=== PATIENT | female | born 1980 | race Two or more races ===

== ENCOUNTER 2024-06-07 12:58 | Emergency (ER) | payer BC, SELFPAY ==
[2024-06-07 13:32] VITALS: BP 163/94; PULSE 88; RESP 18; TEMP 36.9; O2SAT 96; BMI 32.8
--- NOTE | 2024-06-07 13:56 | PD.EDADULT ---
ED General RME/HPI General Chief complaint: Dental/Oral/Throat Stated complaint: FOOD STUCK IN MY THROAT STRINGY PINEAPPLE Time Seen by Provider: 06/07/24 13:42 Source: patient Arrival date/time: 06/07/24 12:58 44-year-old female with no known medical history presents to the emergency room with a chief complaint of a piece of pineapple stuck in her throat. Patient states she was eating pineapple last night and believes the string piece of the pineapple stuck in her throat and she is unable to clear it. Patient denies any shortness of breath or respiratory distress. Mode of arrival: ambulatory Limitations: no limitations Related Data Home Medications ?Medication ?Instructions ?Recorded ?Confirmed No Known Home Medications 06/17/22 06/18/22 Allergies Allergy/AdvReac Type Severity Reaction Status Date / Time No Known Allergies Allergy Verified 06/07/24 13:01 Review of Systems Review of Systems Systems Reviewed: All systems reviewed, normal except as documented Constitutional Constitutional: Reports system reviewed and no additional complaints, except as documented, Denies fatigue, Denies fever(s), Denies headache(s) and Denies weakness Eyes Eyes: Reports system reviewed and no additional complaints, except as documented, Denies blurry vision and Denies change in vision ENT Ears, Nose, Mouth, and Throat: Reports system reviewed and no additional complaints, except as documented, Denies otalgia, Denies headache(s), Denies nasal congestion, Denies throat swelling and Denies vertigo Cardiovascular Cardiovascular: Reports system reviewed and no additional complaints, except as documented, Denies chest pain, Denies dyspnea and Denies dyspnea on exertion Respiratory Respiratory: Reports system reviewed and no additional complaints, except as documented, Denies chest congestion, Denies cough, Denies dyspnea, Denies dyspnea on exertion and Denies wheezing Gastrointestinal Gastrointestinal: Reports system reviewed and no additional complaints, except as documented, Denies abdominal pain, Denies cramping, Denies nausea and Denies vomiting Genitourinary Genitourinary: Reports system reviewed and no additional complaints, except as documented Musculoskeletal Musculoskeletal: Reports system reviewed and no additional complaints, except as documented and Denies back pain Integumentary/Breasts Skin/Breast: Reports system reviewed and no additional complaints, except as documented and Denies wounds Neurologic Neurologic: Reports system reviewed and no additional complaints, except as documented, Denies confusion, Denies headache(s), Denies lack of coordination, Denies vertigo and Denies weakness Psychiatric Psychiatric: Reports system reviewed and no additional complaints, except as documented, Denies anxiety, Denies confusion, Denies depression, Denies paranoia, Denies suicidal ideation and Denies tactile hallucinations Endocrine Endocrine: Reports system reviewed and no additional complaints, except as documented and Denies fatigue Hematologic/Lymphatic Hematologic/Lymphatic: Reports system reviewed and no additional complaints, except as documented and Denies lymphadenopathy Allergic/Immunologic Allergic/Immunologic: Reports system reviewed and no additional complaints, except as documented, Denies throat swelling, Denies urticaria and Denies wheezing ED Exam General Limitations: Present no limitations General appearance: Present alert and in no apparent distress Head Head exam: Present atraumatic Eye Eye exam: Present normal appearance, PERRL and EOMI ENT ENT exam: Present normal exam, normal oropharynx and mucous membranes moist Neck Neck exam: Present normal inspection, full ROM and trachea midline Chest Chest inspection: Present normal inspection and symmetric chest wall rise Respiratory Respiratory exam: Present normal lung sounds bilaterally; Absent respiratory distress, wheezes, stridor, accessory muscle use or prolonged expiratory phase Cardiovascular Cardiovascular exam: Present regular rate, normal rhythm and normal heart sounds Abdominal Exam Abdominal exam: Present soft and normal bowel sounds Extremities Exam Extremities exam: Present normal inspection and full ROM Back Exam Back exam: Present normal inspection and full ROM Neurological Exam Neurological exam: Present alert, oriented X3 and CN II-XII intact Psychiatric Psychiatric exam: Present normal affect and normal mood Skin Skin exam: Present warm, dry, intact and normal color Course Quality Measures none Vital Signs Vital signs: Vital Signs Temperature 98.4 F 06/07/24 13:32 Pulse Rate 88 06/07/24 13:32 Respiratory Rate 18 06/07/24 13:32 Blood Pressure 163/94 H 06/07/24 13:32 Pulse Oximetry (%) 96 06/07/24 13:32 Oxygen Delivery Method Room Air 06/07/24 13:32 O2 saturation 96% within normal limits MDM Patient data External records reviewed:: [facility] previous records Clinical information provided by:: patient Social determinants that could affect healthcare access:: none Patient has the following chronic illnesses:: No chronic illness How is presenting disease/condition affected by chronic disease/condition?: no chronic disease Evaluation data The following diagnostics were reviewed and interpreted by me:: lab results and radiology exam(s) Lab and/or radiology exams considered but not ordered:: Labs and radiology exams considered and ordered Interpretation Summary: N/A Medications Medications considered but not ordered:: No medication given Medication administrations:: No medication given Consultations Consultation(s) initiated? (list below): No Diagnosis Differential Diagnosis ED Complaint MDM: Feeling of foreign body in throat Most likely diagnosis given after review of the tests above:: Feeling of foreign body in throat Admission Indicated Admission indicated?: not indicated Explain why admission is indicated or not indicated:: N/A Admission Request Was there a request for admission?: No Disposition Plan Disposition Plan: Discharge Discharge Attestation Discharge Attestation: The patient and all family members were given an opportunity to ask questions and understood the discharge instructions. Discharge instructions specifically effects, indications for sooner follow up or return to the emergency department, and the expected course of current diagnosis. Patient condition: Stable Medical Decision Making MDM Narrative MDM Narrative: 44-year-old female with no known medical history presents to the emergency room with a chief complaint of a piece of pineapple stuck in her throat. Patient states she was eating pineapple last night and believes the string piece of the pineapple stuck in her throat and she is unable to clear it. Patient denies any shortness of breath or respiratory distress. Patient is hemodynamically stable and in no apparent distress. The patient is not tachypneic tachycardic and O2 saturation is 96% on room air Physical examination shows clear bilateral lung sounds there is no wheezing there is no stridor there is no signs of any respiratory distress or respiratory obstruction. There is no tongue swelling or lip swelling. ENT examination shows a clear posterior pharynx I am unable to visualize the piece of pineapple in her pharynx or in anywhere in the mouth. I consulted Dr. Valdovinos my attending physician and based on his recommendations the patient can be discharged and she will need to follow-up with ENT to have this removed if it continues to bother her Patient was discharged and told to return to the emergency room for any evidence of worsening signs or symptoms Differential Diagnosis Differential Diagnosis: Feeling of foreign body in throat Discharge Plan Plan Patient Disposition: HOME (Self Care) Prescriptions/Referrals Prescriptions/Med Rec: No Action No Known Home Medications Problem List Clinical Impression: Feeling of foreign body in throat Patient/Caregiver Discharge Instructions Additional Instructions: Please follow-up with your primary care provider in the next 24 to 48 hours At this time we are not able to visualize any piece of pineapple in your throat. If your symptoms continue you will need a referral to an ENT specialist to remove this For any evidence of worsening signs or symptoms including shortness of breath, difficulty breathing, difficulty swallowing please return to the emergency room immediately Print Language: Kyrgyz Stand Alone Forms: Madelyn Award Info., Patient Portal Info Letter PA/APARNA Supervising Physician HAYDEE/APARNA Supervising Physician: Dr. Valdovinos
== END 2024-06-07 14:02 | disposition home or self-care (01) ==
PROVIDERS: Emergency Provider Emergency Medicine; PCP Internal Medicine
DX: T17.228A Food in pharynx causing other injury, initial encounter (principal)
CPT/HCPCS: 99281

== ENCOUNTER → 2024-06-21 | Outpatient (CLI) | payer BC, SELFPAY ==
--- NOTE | 2024-06-21 11:30 | XR_ITS ---
Examination: Thyroid sonography complete Technique: Grayscale sonographic images thyroid lobes. Exam date and time: June 24, 2024, 11:21 AM Indications: Difficulty swallowing beginning 6 months ago Findings: Right thyroid 4.1 cm Upper pole nodule 4 x 3 mm Left thyroid 4.4 cm Midpole nodule 2 x 4 mm Lower pole nodules 3 x 4 mm, 3 x 5 mm Impression: Small thyroid nodules as above
== END | disposition home or self-care (01) ==
PROVIDERS: PCP Internal Medicine; Referring Provider Internal Medicine; Visit Provider Internal Medicine
DX: E04.2 Nontoxic multinodular goiter (principal)
CPT/HCPCS: 76536

== ENCOUNTER → 2024-06-22 | Outpatient (CLI) | payer BC, SELFPAY ==
[2024-06-22 11:19] LABS: Basophils # (Auto) 0.1 Thou/mm3 (0.0-0.2); Basophils % (Auto) 1 % (0-2.5); Eosinophils # (Auto) 0.2 Thou/mm3 (0.0-0.5); Eosinophils % (Auto) 2 % (0-10); Hematocrit 36.4 % (36.0-46.0); Hemoglobin 11.3 g/dL (12.0-16.0); Immature Granulocytes % (Auto) 0 % (0-0); Immature Granulocytes Auto 0.03 Thou/mm3 (0.00-0.00); Lymphocytes # (Auto) 1.9 Thou/mm3 (1.0-4.8); Lymphocytes % (Auto) 20 % (10-50); Mean Corpuscular Hemoglobin 24.5 pg (25.0-35.0); Mean Corpuscular Volume 79 fL (80-100); Monocytes # (Auto) 0.5 Thou/mm3 (0.0-0.8); Monocytes % (Auto) 5 % (0-12); Neutrophils # (Auto) 6.8 Thou/mm3 (1.8-7.7); Neutrophils % (Auto) 72 % (37-80); Nucleated Red Blood Cell % 0 /100 WBC (0); Platelet Count 382 Thou/mm3 (140-440); RDW Standard Deviation 52.2 fL (36.4-46.3); Red Blood Count 4.62 Miln/mm3 (4.00-5.20); White Blood Count 9.5 Thou/mm3 (3.6-11.0)
[2024-06-22 11:41] LABS: Vitamin D 25 Hydroxy Total 52.7 ng/mL (7.3-40.2)
[2024-06-22 11:45] LABS: Alanine Aminotransferase 26 U/L (10-49); Albumin, Serum 4.2 gm/dL (3.5-5.0); Albumin/Globulin Ratio 1.7 (1.2-2.2); Alkaline Phosphatase 115 U/L (46-116); Anion Gap 8 (7-16); Aspartate Amino Transferase 11 U/L (0-34); BUN/Creatinine Ratio 14 Ratio (12-20); Bilirubin,Total 0.5 mg/dL (0.3-1.2); Blood Urea Nitrogen 11 mg/dL (9-23); Calcium 9.3 mg/dL (8.3-10.6); Calcium (Corrected) 9.3 mg/dL (8.5-10.1); Carbon Dioxide 26.7 mMol/L (20.0-31.0); Cardiac Risk Estimate 2.3 RATIO (3.7-5.6); Chloride 103 mMol/L (98-107); Cholesterol 124 mg/dL (132-200); Creatinine (Component) 0.8 mg/dL (0.6-1.3); Free T4 (Free Thyroxine) 1.11 ng/dL (0.89-1.76); Globulin 2.5 gm/dL (2.3-3.5); Glucose 101 mg/dL (74-106); HDL Cholesterol 53 mg/dL (40-60); LDL Cholesterol,Calculated 52 mg/dL (0-130); Osmolality,Calculated 275 (275-295); Potassium 4.1 mMol/L (3.4-5.1); Sodium 138 mMol/L (136-145); Thyroid Stimulating Hormone 1.06 uIU/mL (0.55-4.78); Total Protein 6.7 gm/dL (5.7-8.2); Triglycerides 96 mg/dL (30-150); eGFR > 60 See Note
[2024-06-22 11:48] LABS: Glucose Estimated Average 105 mg/dL (80-131); Hemoglobin A1C 5.3 % Hgb (4.8-6.0)
== END | disposition home or self-care (01) ==
PROVIDERS: PCP Internal Medicine; Referring Provider Internal Medicine; Visit Provider Internal Medicine
DX: Z00.00 Encounter for general adult medical examination without abnormal findings (principal); E55.9 Vitamin D deficiency, unspecified; E03.9 Hypothyroidism, unspecified
CPT/HCPCS: 36415; 80053; 80061; 82306; 83036; 84439; 84443; 85025

== ENCOUNTER 2024-08-19 15:21 | Emergency (ER) | payer BC, SELFPAY ==
[2024-08-19 15:26] VITALS: BP 151/76; PULSE 84; RESP 17; TEMP 36.8; O2SAT 97; BMI 30.9
--- NOTE | 2024-08-19 15:35 | XR_ITS ---
Examination: Tibia-Fibula, right , 2 views Technique: Tibia-fibula AP lateral 2 views Date and time of exam: August 19, 2024 1548 hrs. Indications: Injury to the lower leg today, lower leg pain Findings: No acute fracture. No dislocation. No foreign body. Impression: No acute fracture
--- NOTE | 2024-08-19 15:36 | EDNOTE_ITS ---
Lower Extremity Injury RME/HPI General Chief Complaint: Extremity Injury, Lower Stated Complaint: RT CALF PAIN. HEARD A POP Time Seen by Provider: 08/19/24 15:36 Source: patient Arrival date/time: 08/19/24 15:21 44-year-old female with no known medical history presents to the emergency room with a chief complaint of tenderness and pain to her right calf after walking and climbing up stairs. Mode of arrival: ambulatory Limitations: no limitations Related Data Home Medications ?Medication ?Instructions ?Recorded ?Confirmed No Known Home Medications 06/17/2206/09 Allergies Allergy/AdvReac Type Severity Reaction Status Date / Time No Known Allergies Allergy Verified 06/07/24 13:01 Review of Systems Review of Systems Systems Reviewed: All systems reviewed, normal except as documented Constitutional Constitutional: Reports system reviewed and no additional complaints, except as documented, Denies fatigue, Denies fever(s), Denies headache(s) and Denies weakness Eyes Eyes: Reports system reviewed and no additional complaints, except as documented, Denies blurry vision and Denies change in vision ENT Ears, Nose, Mouth, and Throat: Reports system reviewed and no additional complaints, except as documented, Denies otalgia, Denies headache(s), Denies nasal congestion, Denies throat swelling and Denies vertigo Cardiovascular Cardiovascular: Reports system reviewed and no additional complaints, except as documented, Denies chest pain, Denies dyspnea and Denies dyspnea on exertion Respiratory Respiratory: Reports system reviewed and no additional complaints, except as documented, Denies chest congestion, Denies cough, Denies dyspnea, Denies dyspnea on exertion and Denies wheezing Gastrointestinal Gastrointestinal: Reports system reviewed and no additional complaints, except as documented, Denies abdominal pain, Denies cramping, Denies nausea and Denies vomiting Genitourinary Genitourinary: Reports system reviewed and no additional complaints, except as documented Musculoskeletal Musculoskeletal: Reports system reviewed and no additional complaints, except as documented, Reports arthralgias, Denies back pain, Reports joint swelling and Reports limited range of motion Integumentary/Breasts Skin/Breast: Reports system reviewed and no additional complaints, except as documented and Denies wounds Neurologic Neurologic: Reports system reviewed and no additional complaints, except as documented, Denies confusion, Denies headache(s), Denies lack of coordination, Denies vertigo and Denies weakness Psychiatric Psychiatric: Reports system reviewed and no additional complaints, except as documented, Denies anxiety, Denies confusion, Denies depression, Denies paranoia, Denies suicidal ideation and Denies tactile hallucinations Endocrine Endocrine: Reports system reviewed and no additional complaints, except as documented and Denies fatigue Hematologic/Lymphatic Hematologic/Lymphatic: Reports system reviewed and no additional complaints, except as documented and Denies lymphadenopathy Allergic/Immunologic Allergic/Immunologic: Reports system reviewed and no additional complaints, except as documented, Denies throat swelling, Denies urticaria and Denies wheezing ED Exam General Limitations: Present no limitations General appearance: Present alert and in no apparent distress Head Head exam: Present atraumatic Eye Eye exam: Present normal appearance, PERRL and EOMI ENT ENT exam: Present normal exam, normal oropharynx and mucous membranes moist Neck Neck exam: Present normal inspection, full ROM and trachea midline Chest Chest inspection: Present normal inspection and symmetric chest wall rise Respiratory Respiratory exam: Present normal lung sounds bilaterally Cardiovascular Cardiovascular exam: Present regular rate, normal rhythm and normal heart sounds Abdominal Exam Abdominal exam: Present soft and normal bowel sounds Extremities Exam Extremities exam: Present normal inspection and full ROM Expanded Lower Extremity Exam Hip/Pelvis exam: Present normal inspection Upper leg exam: Present normal inspection Knee exam: Present normal inspection Lower leg exam: Present full ROM and tenderness; Absent swelling, deformity or Homans' sign Foot/toe exam: Present normal inspection Gait: observed and normal Back Exam Back exam: Present normal inspection and full ROM Neurological Exam Neurological exam: Present alert, oriented X3 and CN II-XII intact Psychiatric Psychiatric exam: Present normal affect and normal mood Skin Skin exam: Present warm, dry, intact and normal color Course Quality Measures none Orders Category Date Time Status Splint / Immobilizer STAT Care 08/19/24 16:26 Active XR tibia fibula RT 2V Stat Exams 08/19/24 15:35 Completed Vital Signs Vital signs: Vital Signs Temperature 98.2 F 08/19/24 15:26 Pulse Rate 84 08/19/24 15:26 Respiratory Rate 17 08/19/24 15:26 Blood Pressure 151/76 H 08/19/24 15:26 Pulse Oximetry (%) 97 08/19/24 15:26 Oxygen Delivery Method Room Air 08/19/24 15:26 O2 saturation 97% within normal limits Extremity Injury, Lower MDM Narrative MDM Narrative:: 44-year-old female with no known medical history presents to the emergency room with a chief complaint of tenderness and pain to her right calf after walking and climbing up stairs. Patient is hemodynamically stable and in no apparent distress Physical examination shows tenderness and pain to the patient's right calf. X- ray of the tib-fib was completed and was negative for any acute fracture or dislocation Hector wrap was placed Patient was discharged and educated to follow-up with primary care provider in the next 24 to 48 hours and return to the emergency room for any evidence of worsening signs or symptoms Patient data External records reviewed:: [facility] previous records Clinical information provided by:: patient Social determinants that could affect healthcare access:: none Patient has the following chronic illnesses:: No chronic illness How is presenting disease/condition affected by chronic disease/condition?: no chronic disease Evaluation data The following diagnostics were reviewed and interpreted by me:: lab results and radiology exam(s) Lab and/or radiology exams considered but not ordered:: Labs radiology exams considered and ordered Interpretation Summary: Tib-fib x-ray-no acute fracture or dislocation Medications / Prescriptions Medications or Prescriptions considered but not ordered:: No medication given Medication administrations:: No medication given Consultations Consultation(s) initiated? (list below): No Diagnosis Extremity Injury, Lower Differential Diagnosis: other (Calf Sprain/tib-fib fracture/) Most likely diagnosis given after review of the tests above:: Calf Sprain Admission Indicated Admission indicated?: not indicated Admission Request Was there a request for admission?: No Disposition Plan Disposition Plan: Discharge Discharge Attestation Discharge Attestation: The patient and all family members were given an opportunity to ask questions and understood the discharge instructions. Discharge instructions specifically effects, indications for sooner follow up or return to the emergency department, and the expected course of current diagnosis. Patient condition: Stable Discharge Plan Plan Patient Disposition: HOME (Self Care) Discharge Disposition comment: Stable Prescriptions/Referrals Prescriptions/Med Rec: No Action No Known Home Medications Referrals: Eros Tolbert MD [Primary Care Provider] - In 1 week Problem List Clinical Impression: Strain of calf muscle Patient/Caregiver Discharge Instructions Education Materials: ED HECTOR Wrap, ED Foot Sprain Additional Instructions: Please follow-up with your primary care provider in the next 24 to 48 hours. Your x-rays were negative for any acute fracture or dislocation For any evidence of worsening signs or symptoms return to emergency room immediately Print Language: Peruvian Stand Alone Forms: [employer]., Patient Portal Info Letter PA/CLERICAL CAR CHECKER Supervising Physician PA/CLERICAL CAR CHECKER Supervising Physician: Dr. [place]
--- NOTE | 2024-08-19 16:44 | PC.NURSE ---
per provider no splint needed at this time. per provider apply frank wrap to right lower leg.
[2024-08-19 16:45] VITALS: BP 156/99; PULSE 75; RESP 18; TEMP 37.3; O2SAT 99
== END 2024-08-19 16:46 | disposition home or self-care (01) ==
PROVIDERS: Emergency Provider Family Medicine; PCP Internal Medicine
DX: S86.911A Strain of unspecified muscle(s) and tendon(s) at lower leg level, right leg, initial encounter (principal); X58.XXXA Exposure to other specified factors, initial encounter; Y93.01 Activity, walking, marching and hiking
CPT/HCPCS: 73590; 99283

== ENCOUNTER 2024-09-21 09:16 | Outpatient (AMB) | payer BC, SELFPAY ==
--- NOTE | 2024-09-21 09:30 | GYNCLNT_ITS ---
Vital Signs 09/21/24 09:44 Height 1.63 m Height Method Stated Weight 86.296 kg Weight Measurement Method Standing Scale BMI 32.6 BP 138/74 H Blood Pressure Source Automatic Cuff Blood Pressure Location Right Upper Arm Position Sitting Respiration 17 Pulse 73 Pulse Source Monitor Temp 98.4 F Temp Source Temporal Artery Scan Pulse Oximetry (%) 98 Oxygen Delivery Method Room Air Allergies/Home Meds Allergies & Medications Allergies No Known Allergies Allergy (Verified 09/21/24 09:30) Medication Reconciliation carvedilol 6.25 mg tablet 6.25 mg PO BID 09/22/24 [History] Intake Visit Data Collection New Patient or Established: Established Patient (seen at [facility] within 3 years) Reason for Visit:: ANNUAL EXAM Seen by Clinical Staff ONLY (RN/MA): No Transformation Analyst Required: No Do You Feel Safe at Home: Yes Authorities Contacted: N/A PCP or OBGYN visit in last 3 months: Yes Date of Last PCP or OBGYN visit: 08/19/24 Hx Now: No Are you currently on any form of Control: Yes (CONDOM[employer]) Last menstrual period: 09/02/24 Smoking Status Smoking Status: Never smoker 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 Menstrual regularity: regular Flow: normal Monthly: Yes How many days does period last: 6 Age at menarche: 13 Currently sexually active: Yes 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: Past Medical History Past Medical History: No Hx Neurological Disorders, No Hx Cardiac Disorders, No Hx Cancer, Yes Hx Blood Disorders, Yes Hx Anemia, Yes Hx Gastrointestinal Disorders, No Hx Renal Disease, No Hx Diabetes Mellitus Type 1 and No Hx Diabetes Mellitus Type 2 Additional Operations/Hospitalizations (year & reason): SAB x 3, one D and C L salpincectomy for ectopic 2013 2022 laparoscopic cholecystectomy Other Relevant History: HTN Anxiety Fibroids Asthma Questionnaires Covid-19 Vaccine Questionnaire Has patient been vacinated for Covid-19 Have you been vacinated for Covid-19: No PHQ-9 PHQ-2 Over the last 2 weeks, how often have you been bothered by any of the following problems? 1. Little interest or pleasure in doing things: not at all 2. Feeling down, depressed, or hopeless: not at all Total score: 0 PHQ-9 3. Trouble falling or staying asleep, or sleeping too much: Not at all 4. Feeling tired or having little energy: Not at all 5. Poor appetite or overeating: Not at all 6. Feeling bad about yourself - or that you are a failure or have let yourself or your family down: Not at all 7. Trouble concentrating on things, such as reading the newspaper or watching television: Not at all 8. Moving or speaking so slowly that other people could have noticed? - Or the opposite - being so fidgety or restless that you have been moving around a lot more than usual: not at all 9. Thoughts that you would be better off or of hurting yourself in some way: Not at all Total score: 0 If you checked off any problems, how difficult have these problems made it for you to do your work, take care of things at home, or get along with other people?: not difficult at all Source: Developed by Drs. Jacob Valdivia, Ivonne Meelndez, Gerg Plascencia and colleagues, with an educational fadi from [employer]. 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 She has a history of SAB x 3 and one ectopic in the past. They no longer desire to try for as the patient states she is too old.She reports palpitations before her cycle and an increase in anxiety. She has regular menses and is using timing for contraception. We discussed control options including condoms or vasectomy. She is not a candidate for OCPs due to her age and HTN. PG only methods such as an IUD and nexplanon were discussed, Occasional hot lashes and night seats, She wants her hormones evaluated. Exam General Limitations: no limitations General Appearance: alert, in no apparent distress, comfortable, cooperative, healthy appearing, well developed and well groomed Head Head exam: atraumatic, normocephalic and normal inspection ENT ENT exam: Present normal exam, normal oropharynx and mucous membranes moist Neck Neck exam: Present normal inspection, full ROM and trachea midline Chest Chest inspection: Present normal inspection and symmetric chest wall rise Exp Chest Breast: bilateral: other (Normal breast exam bilaterally) Resp Respiratory exam: Present normal lung sounds bilaterally Card Cardiovascular exam: Present regular rate, normal rhythm and normal heart sounds Abdominal Abdominal exam: Present soft and normal bowel sounds External exam: Present normal external exam Speculum exam: Present normal speculum exam Bimanual exam: Present normal bimanual exam (uterus anteverted) Extremities Extremities exam: Present normal inspection and full ROM Psych Psychiatric exam: Present normal affect and normal mood Skin Skin exam: Present warm, dry, intact and normal color Office Procedures OB Clinic LOC & Office Proc's Nursing/Assessment Patient Status: Established Patient OB Clinic Nursing Assessment: Medication Reconciliation, Update PMH in EMR and Vital Signs OB Clinic Coordination of Care: Complex Care and Chronic Disease 1-5, Consent,records obtained, informed consent, Education Simp Pt/Fam, Lab and I maging orders and Staff clarify orders Miscellaneous Interventions: Breast Exam Established Patient Charge Established Patient Point Assignment: 130 Established Patient Point Charge: EP Level 3 (80-115) In Clinic Procedures Pap Smear: Yes Assessment & Plan Diagnosis / Problem List (1) Women's annual routine gynecological examination: Status: Acute Assessment and Plan: Pap with high risk HPV done Breast exam done and encouraged Mammogram ordered (2) Perimenopausal: Status: Acute Assessment and Plan: Order TSH, FSH E2. Offered E2 patch vs lexapro the week of her cycles. She opts for weekly E2 patch. Will call her with the results of her pap and labs
[2024-09-21 09:44] VITALS: BP 138/74; PULSE 73; RESP 17; TEMP 36.9; O2SAT 98; BMI 32.6
== END 2024-09-21 10:13 | disposition home or self-care (01) ==
PROVIDERS: PCP Internal Medicine; Referring Provider Internal Medicine; Supervising Provider Obstetrics & Gynecology; Visit Provider Obstetrics & Gynecology
DX: Z01.419 Encounter for gynecological examination (general) (routine) without abnormal findings (principal); Z11.51 Encounter for screening for human papillomavirus (HPV); N95.1 Menopausal and female climacteric states; R23.2 Flushing; R61 Generalized hyperhidrosis
CPT/HCPCS: 99213; Q0091; G0463

== ENCOUNTER → 2024-09-27 | Outpatient (CLI) | payer BC, SELFPAY ==
[2024-09-27 18:00] LABS: Follicle Stimulating Hormone 2.23 mIU/mL (See Note); Free T4 (Free Thyroxine) 1.15 ng/dL (0.89-1.76)
== END | disposition home or self-care (01) ==
LOC: COPL 15:54
PROVIDERS: PCP Internal Medicine; Referring Provider Obstetrics & Gynecology; Visit Provider Obstetrics & Gynecology
DX: N95.1 Menopausal and female climacteric states (principal)
CPT/HCPCS: 36415; 82670; 83001; 84439

== ENCOUNTER → 2025-02-22 | Outpatient (CLI) | payer BC, SELFPAY ==
--- NOTE | 2025-02-22 13:15 | XR_ITS ---
Examination: Screening digital mammography, bilateral Computer aided detection 3-D breast Tomosynthesis, bilateral Date and time of exam: February 22, 2025, 1302 hours, compared to mammograms dating to July 06, 2023 Indication: Screening Technique: Nonmagnified MLO, CC views of the breasts to been obtained, reconstructed from 3-D Tomosynthesis images. R2 computer aided detection program utilized for evaluation of suspicious masses and/or abnormal calcifications. 3-D Tomosynthesis images obtained. Findings: The breasts are heterogeneously dense, which may obscure small masses No definite suspicious masses although the breast architecture is nodular Impression: BI-RADS Category 0: Incomplete: Need additional imaging evaluation Recommend repeat bilateral breast sonography given the nodular heterogeneous breast architecture
== END | disposition home or self-care (01) ==
LOC: CDIM 12:51
PROVIDERS: PCP Internal Medicine; Referring Provider Obstetrics & Gynecology; Visit Provider Obstetrics & Gynecology
DX: Z12.31 Encounter for screening mammogram for malignant neoplasm of breast (principal); R92.8 Other abnormal and inconclusive findings on diagnostic imaging of breast
CPT/HCPCS: 77063; 77067

== ENCOUNTER 2025-04-10 13:37 | Outpatient (AMB) | payer BC, SELFPAY ==
--- NOTE | 2025-04-10 13:44 | GYNCLNT_ITS ---
Allergies/Home Meds Allergies & Medications Allergies No Known Allergies Allergy (Verified 04/10/25 14:24) Medication Reconciliation carvedilol 6.25 mg tablet 6.25 mg PO BID 09/22/24 [History Confirmed 04/10/25] Intake Visit Data Collection New Patient or Established: Established Patient (seen at [facility] within 3 years) Reason for Visit:: [place] MAMMO RESULTS Consent obtained for Telemed Visit: Yes Seen by Clinical Staff ONLY (RN/MA): No Analysis Engineer Required: No Do You Feel Safe at Home: Yes Authorities Contacted: N/A PCP or OBGYN visit in last 3 months: Yes Date of Last PCP or OBGYN visit: 02/22/25 Hx Now: No Are you currently on any form of Control: No Last menstrual period: 03/30/25 Pain Present Currently: No Pain Scale Used: Romero-Ford/Numerical Pain scale:: 0 Smoking Status Smoking Status: Never smoker Immunizations Flu Vaccine in the Last 12 Months: Yes Flu Vaccine Exclusion Criteria: Already Received For Telemed visit only Telemed Video/Phone Visit: Yes Verbal consent obtained for Telemed visit?: Yes Verbal Consent witness name: CHE TURNER MA Telemed Video/Phone visit w/Clinical Staff: 11-20 min 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 Menstrual regularity: regular Flow: heavy Monthly: Yes How many days does period last: 7 Age at menarche: 13 Currently sexually active: Yes Additional comments: Menstrual regularity: regular Flow: normal Monthly: Yes How many days does period last: 6 Age at menarche: 13 Currently sexually active: Yes 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 Medical History Past Medical History: No Hx Neurological Disorders, No Hx Cardiac Disorders, No Hx Cancer, Yes Hx Blood Disorders, Yes Hx Anemia, Yes Hx Gastrointestinal Disorders, No Hx Renal Disease, No Hx Diabetes Mellitus Type 1 and No Hx Sonja betes Mellitus Type 2 Additional Operations/Hospitalizations (year & reason): Past Medical History: No Hx Neurological Disorders, No Hx Cardiac Disorders, No Hx Cancer, Yes Hx Blood Disorders, Yes Hx Anemia, Yes Hx Gastrointestinal Disorders, No Hx Renal Disease, No Hx Diabetes Mellitus Type 1 and No Hx Diabetes Mellitus Type 2 Additional Operations/Hospitalizations (year & reason): [facility] x 3, one D and C L salpincectomy for ectopic 2013 2022 laparoscopic cholecystectomy Other Relevant History: HTN Anxiety Fibroids Asthma Questionnaires Covid-19 Vaccine Questionnaire Has patient been vacinated for Covid-19 Have you been vacinated for Covid-19: Yes PHQ-9 PHQ-2 Over the last 2 weeks, how often have you been bothered by any of the following problems? 1. Little interest or pleasure in doing things: not at all 2. Feeling down, depressed, or hopeless: not at all Total score: 0 PHQ-9 3. Trouble falling or staying asleep, or sleeping too much: Not at all 4. Feeling tired or having little energy: Not at all 5. Poor appetite or overeating: Not at all 6. Feeling bad about yourself - or that you are a failure or have let yourself or your family down: Not at all 7. Trouble concentrating on things, such as reading the newspaper or watching television: Not at all 8. Moving or speaking so slowly that other people could have noticed? - Or the opposite - being so fidgety or restless that you have been moving around a lot more than usual: not at all 9. Thoughts that you would be better off or of hurting yourself in some way: Not at all Total score: 0 If you checked off any problems, how difficult have these problems made it for you to do your work, take care of things at home, or get along with other people?: not difficult at all Source: Developed by Drs. Jacob Valdivia, Ivonne Melendez, Greg Plascencia and colleagues, with an educational fadi from [employer]. 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 Record#: [id number] Birthdate: 1980 Age/Sex: 45 / F Location: [facility] Attending Dr: Paula Lopez ([facility]) [facility]ing Physician[facility] Date of Service: 02/22/25 Procedure(s): JERMAINE CAD screening BI Accession Number(s): [id number] cc: Eros Tolbert MD; Paula Lopez MD-[facility]; Aaron Palacio MD~ Examination: Screening digital mammography, bilateral Computer aided detection 3-D breast Tomosynthesis, bilateral Date and time of exam: February 22, 2025, 1302 hours, compared to mammograms dating to July 06, 2023 Indication: Screening Technique: Nonmagnified MLO, CC views of the breasts to been obtained, reconstructed from 3-D Tomosynthesis images. R2 computer aided detection program utilized for evaluation of suspicious masses and/or abnormal calcifications. 3-D Tomosynthesis images obtained. 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 Machine Offbearer: [facility] Office Procedures [facility] LOC & Office Proc's Nursing/Assessment Patient Status: Established Patient [facility] Clinic Nursing Assessment: Medication Reconciliation, Update PMH in EMR and Vital Signs OB Clinic Coordination of Care: Complex Care and Chronic Disease 1-5, Education Complex Pt/Fam, Consent,records obtained, informed consent, Lab and Imaging orders, Results/Orders obtained and Staff clarify orders Established Patient Charge Established Patient Point Assignment: 110 Established Patient Point Charge: EP Level 3 (80-115) Antepartum Initial or Follow-up Antepartum Initial Visit: Yes Assessment & Plan Diagnosis / Problem List (1) Abnormal mammogram, unspecified: Status: Acute Plan: Order bilateral Breast US (2) Perimenopausal: Status: Acute Additional Assessment Plan ordered a bilateral breast US and the order will be fxed to Radiology at [facility] and patient to follow u after the procedure/ test
== END 2025-04-10 15:04 | disposition home or self-care (01) ==
PROVIDERS: Supervising Provider Obstetrics & Gynecology; Visit Provider Obstetrics & Gynecology
DX: R92.8 Other abnormal and inconclusive findings on diagnostic imaging of breast (principal); Z78.0 Asymptomatic menopausal state; I10 Essential (primary) hypertension; Z90.79 Acquired absence of other genital organ(s); Z90.49 Acquired absence of other specified parts of digestive tract; Z79.899 Other long term (current) drug therapy
CPT/HCPCS: 59425; 99213; G0463